=== PATIENT | female | born 2000 | race American Indian/Alaskan Native ===

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

== ENCOUNTER 2019-01-16 17:28 | Inpatient (IN) | payer MEDICAID ==
--- NOTE | 2019-01-16 17:48 | History and Physical Report ---
History of Present Illness Date of examination: 01/16/19 Date of admission: 01/16/19 17:28 History of present illness: Patient admitted from office for induction due to BPP of 01/28 ( 2 for NST and amniotic fluid volume) Patient w/o complaints states she has been feeling movement. Menstrual History Regularity: irregular Menses every: 30 days Duration: 5 LMP: 04/13/2018 LMP reliability: definite LMP character: normal test type: urine test Date: 04/23/2018 BC at conception: none Planned ? no EDC Calculations LMP: 01/18/2019 EDC Confirmation: 01/18/2019 Past History : 1 Living Children: 0 Past Medical History: Negative Past Medical History Past Surgical History: Negative Past Surgical History Past Medical History Surgery (Non-counselor aid): Negative Past Surgical History Abnormal PAP: negative GARRICK Exposure: negative Infertility: negative Uterine Anomaly: negative Uterine Surgery (not C/S): negative Other Gynecologic Problems: negative Medical History Comments: negaitve Family Hx: father-DM breast stomach CA-MGM Social Hx: single no e/t/d Infection History Varicella/Chicken Pox Status: Unknown Genetic History Congenital Heart Defect: Mom: no Dad: no Kandace Disease: Mom: no Dad: no Thalassemia Mom: no Dad: no Neural Tube Defect Mom: no Dad: no Down's Syndrome Mom: no Dad: no Donald-Sachs Mom: no Dad: no Sickle Cell Disease/Trait Mom: no Dad: no Hemophilia Mom: no Dad: no Muscular Dystrophy Mom: no Dad: no Cystic Fibrosis Mom: no Dad: no Major Chorea Mom: no Dad: no Mental Retardation Mom: no Dad: no Fragile X Mom: no Dad: no Other Genetic/Chromosomal Disorder Mom: no Dad: no Child w/other defect Mom: no Dad: no Enviromental Exposures Xray Exposure: no Medication, drug, or alcohol use since LMP: no Chemical/Other Exposure: no Exposure to Cat Liter: no Hx of Parvovirus (Fifth Disease): no Occupational Exposure to Children: none Current Allergies (reviewed today): No known allergies Past History Past Medical History: other (See HPI) Past Surgical History: other (See HPI) LOG CLERK History: other (See HPI) Family/Genetic History: other Social history: single, full code, other (See HPI) - Obstetrical History Expected Date of Delivery: 01/18/19 Actual Gestation: 39 Week(s) 6 Day(s) : 1 Para: 0 Hx # Term Pregnancies: 0 Number of Pregnancies: 0 Spontaneous Abortions: 0 Induced : 0 Number of Living Children: 0 Medications and Allergies Allergies Allergy/AdvReac Type Severity Reaction Status Date / Time No Known Allergies Allergy Verified 05/19/18 18:53 Home Medications Medication Instructions Recorded Confirmed Last Taken Type Nitrofurantoin [place]/M-Cryst 100 mg PO Q12HR #10 capsule 06/04/17 Unknown Rx [Macrobid CAP] Phenazopyridine [Pyridium] 100 mg PO TID #12 tab 06/04/17 Unknown Rx Naproxen [Naprosyn TAB] 500 mg PO BID PRN #12 tablet 07/29/17 Unknown Rx Diphenhydramine HCl/Zinc Acet 28.3 gm TP BID PRN #1 tube 08/19/17 Unknown Rx [Benadryl Itch Stopping Crm] hydrOXYzine HCl [Hydroxyzine HCl] 25 mg PO BID #14 tablet 08/19/17 Unknown Rx methylPREDNISolone [Medrol] 4 mg PO QAM #1 tab.ds.pk 08/19/17 Unknown Rx Ibuprofen [Motrin] 600 mg PO Q8H PRN #30 tablet 03/13/18 Unknown Rx Vit-Fe Fumar-FA [ 1 tab PO QDAY #30 tablet 05/20/18 Unknown Rx Vitamin] Doxylamine Succinate/Vit B6 1 each PO Q6H #30 tablet. 06/06/18 Unknown Rx [Marquez Cardona 10-10 mg Tablet] Deanna Root [Deanna] 250 mg PO Q6H #30 capsule 06/06/18 Unknown Rx Review of Systems All systems: negative - Physical Exam Breasts: Positive: deferred Cardiovascular: Regular rate Lungs: Positive: Normal air movement Abdomen: Positive: normal appearance Genitourinary (Female): Positive: normal external genitalia Uterus: Positive: enlarged Extremities: Positive: edema - Obstetrical Uterine Contraction Pattern: Absent Results Result Diagrams: 01/16/19 20:58 All other labs normal. Assessment and Plan - Patient Problems (1) with 39 completed weeks gestation Current Visit: Yes Status: Acute (2) Abnormal test Current Visit: Yes Status: Acute Plan to address problem: Admitted for serial induction. Cervidil is closed. Will place cervidil this pm Watch tracing. Pitoin in am. patient questions answered. patient has missed last appointments Will do drug screen due to low BPP.
[2019-01-16] MEDS ORDERED: STADOL IV PRN (17:51)
[2019-01-16] MEDS ORDERED: BRETHINE SUB-Q PRN (17:51)
[2019-01-16] MEDS ORDERED: CERVIDIL VG ONE (17:51)
[2019-01-16] MEDS ORDERED: PHENERGAN PO PRN (17:51)
[2019-01-16] MEDS ORDERED: XYLOCAINE 2% INFILTRATI ONE (17:51)
[2019-01-16] MEDS ORDERED: BRETHINE IVP PRN (17:51)
[2019-01-16] MEDS ORDERED: PITOCin/NS 20 UNIT/1000ML DRIP 20 UNITS/1,000 ML BAG IV SCH (18:00)
[2019-01-16 21:35] LABS: Hematocrit 25.5 % (30.3-42.9); Mean Corpuscular HGB Conc 32 % (30-34); Mean Corpuscular Volume 71 fl (79-97); Platelet Count 216 K/mm3 (140-440)
[2019-01-16 21:36] LABS: Red Cell Distribution Width 20.1 % (13.2-15.2)
[2019-01-16] MEDS: LACTATED RINGERS 1,000 ML IV SCH (21:37)
[2019-01-16 21:42] LABS: Amphetamine Screen,Urine PRESUMPTIVE NEGATIVE; Benzodiazepines Screen,Urine PRESUMPTIVE NEGATIVE; Cannabinoid Screen,Urine PRESUMPTIVE NEGATIVE; Cocaine Screen,Urine PRESUMPTIVE NEGATIVE; Methadone Screen,Urine PRESUMPTIVE NEGATIVE; Opiate Screen,Urine PRESUMPTIVE NEGATIVE
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
[2019-01-17] MEDS: PITOCin/NS 30 UNIT/500ML 30 UNITS/500 ML BAG IV SCH ×3 (10:29→12:24)
--- NOTE | 2019-01-17 11:08 | Event Note ---
Date: 01/17/19 elevated b/p noted, possibly related to pain. will get baseline pre-e labs and continue to monitor
--- NOTE | 2019-01-17 11:51 | Progress Note ---
Assessment and Plan Pt continues to have regular ctx, rates pain 04/29. SVE now 4/80/-1, head well applied to cervix. Discussed AROM and internal monitoring for accurate pitocin titration. Pt and mother agree. AROM - small amount of clear blood- tinged fluid noted. IUPC and ISE placed without difficulty. Pitocin currently infusing @ 4mU, rn to titrate for adequate labor. FHT remain CAT 1. Epidural PRN. - Patient Problems (1) Abnormal test Current Visit: Yes Status: Acute (2) Anemia affecting in third trimester Current Visit: Yes Status: Acute (3) with 39 completed weeks gestation Current Visit: Yes Status: Acute Subjective - Subjective Date of service: 01/17/19 Principal diagnosis: IUp @ 39+6 weeks, IOL for BPP 01/28 Patient reports: movement normal, contractions Objective - Vital Signs Vital Signs: Vital Signs - 12hr 01/16/19 01/17/19 01/17/19 23:53 00:53 05:53 Temperature Pulse Rate 75 62 62 Respiratory Rate Blood Pressure 123/74 109/61 141/78 Blood Pressure [Right] 01/17/19 01/17/19 01/17/19 09:17 10:53 11:09 Temperature 98.6 F Pulse Rate 67 67 70 Respiratory 16 Rate Blood Pressure 143/80 161/72 130/76 Blood Pressure 143/80 [Right] - Exam Breasts: normal Cardiovascular: Regular rate Lungs: Clear to auscultation, Normal air movement Abdomen: Present: normal appearance, soft Vulva: both: normal Uterus: Present: normal FHR: category 1 Uterine Contraction Monitor Mode: Internal Cervical Dilatation: 4 (AROM - ISE and IUPC placed) Cervical Effacement Percentage: 80 station: -1 Uterine Contraction Frequency (min): 2-3 Uterine Contraction Duration: 60 Uterine Contraction Pattern: Regular Uterine Tone Measurement Phase: Contraction Uterine Contraction Intensity: Mild Extremities: normal Deep Tendon Reflex Grade: Normal +2 - Labs Labs: Abnormal Labs 01/16/19 20:58 RBC 3.60 L Hgb 8.0 L Hct 25.5 L MCV 71 L MCH 22 L RDW 20.1 H Laboratory Results - last 24 hr 01/16/19 01/16/19 01/16/19 20:58 20:58 20:58 WBC 8.7 RBC 3.60 L Hgb 8.0 L Hct 25.5 L MCV 71 L MCH 22 L MCHC 32 RDW 20.1 H Plt Count 216 Urine Opiates Screen Presumptive negative Urine Methadone Screen Presumptive negative Ur Barbiturates Screen Presumptive negative Ur Phencyclidine Scrn Presumptive negative Ur Amphetamines Screen Presumptive negative U Benzodiazepines Scrn Presumptive negative Urine Cocaine Screen Presumptive negative U Marijuana (THC) Screen Presumptive negative Drugs of Abuse Note Disclamer Blood Type A POSITIVE Antibody Screen Negative
[2019-01-17] MEDS: LACTATED RINGERS 1,000 ML IV SCH ×2 (12:24→17:16)
[2019-01-17] MEDS ORDERED: MARCAINE 0.25% INFILTRATI ONE (13:11)
[2019-01-17] MEDS ORDERED: NARCAN 2 MG/2 ML IV PRN (13:52)
--- NOTE | 2019-01-17 13:52 | Anesthesia Consultation ---
Anesthesia Consult and Med Hx - Airway Anesthetic Teeth Evaluation: Good, Partials ROM Head & Neck: Adequate Mental/Hyoid Distance: Adequate Mallampati Class: Class II Intubation Access Assessment: Probably Good - Pulmonary Exam CTA: Yes - Cardiac Exam Cardiac Exam: RRR - Pre-Operative Health Status ASA Pre-Surgery Classification: ASA2 Proposed Anesthetic Plan: Epidural - Pulmonary Hx Asthma: No - Cardiovascular System Hx Hypertension: No - Central Nervous System Hx Neuromuscular Disorder: No Hx Seizures: No Hx Psychiatric Problems: No - Endocrine Hx Renal Disease: No Hx Hypothyroidism: No Hx Hyperthyroidism: No - Hematic Hx Anemia: No Hx Sickle Cell Disease: No - Other Systems Hx Alcohol Use: No
--- NOTE | 2019-01-17 13:52 | Anesthesia Day of Surgery ---
Anesthesia Day of Surgery - Day of Surgery Patient Examined: Yes Patient H&P Reviewed: Yes Patient is NPO: Yes Beta Blockers: No Cardiac Clearance: No Pulmonary Clearance: No Clay's Test: N/A
[2019-01-17] MEDS ORDERED: fentaNYL-BUPIV 2 MCG/ML-0.125% 200 MCG/100 ML BAG EPIDURAL SCH (14:00)
--- NOTE | 2019-01-17 14:02 | Progress Note ---
Assessment and Plan Patient comfortable with epidural, SVE 5/80/-1. FHT baseline down to 110 after epidural with good variability, + accels and no decelerations. Will continue to watch closely. Pitocin infusing @ 6mU, rn to increase for adequate ctx strength. Pelvis feels adequate for size. efw by Jackelin 8-9lbs. - Patient Problems (1) Abnormal test Current Visit: Yes Status: Acute (2) Anemia affecting in third trimester Current Visit: Yes Status: Acute (3) with 39 completed weeks gestation Current Visit: Yes Status: Acute Subjective - Subjective Date of service: 01/17/19 Principal diagnosis: IUp @ 39+6 weeks, IOL for BPP 01/28 Patient reports: no new complaints (comfortable s/p epidural) Objective - Vital Signs Vital Signs: Vital Signs - 12hr 01/17/19 01/17/19 01/17/19 05:53 09:17 10:53 Temperature 98.6 F Pulse Rate 62 67 67 Respiratory 16 Rate Blood Pressure 141/78 143/80 161/72 Blood Pressure 143/80 [Right] O2 Sat by Pulse Oximetry 01/17/19 01/17/19 01/17/19 11:09 12:53 13:26 Temperature Pulse Rate 70 66 74 Respiratory Rate Blood Pressure 130/76 134/92 158/81 Blood Pressure [Right] O2 Sat by Pulse Oximetry 01/17/19 01/17/19 01/17/19 13:33 13:50 13:52 Temperature Pulse Rate 85 86 94 H Respiratory Rate Blood Pressure 144/100 133/67 Blood Pressure [Right] O2 Sat by Pulse 100 Oximetry - Exam Breasts: normal Cardiovascular: Regular rate Lungs: Clear to auscultation, Normal air movement Abdomen: Present: normal appearance, soft Vulva: both: normal Uterus: Present: normal FHR: auscultation normal, category 1 Uterine Contraction Monitor Mode: Internal Cervical Dilatation: 5 Cervical Effacement Percentage: 80 station: -1 Uterine Contraction Frequency (min): 2-3 Uterine Contraction Duration: 50-70 Uterine Contraction Pattern: Regular Uterine Tone Measurement Phase: Contraction Uterine Contraction Intensity: Moderate Extremities: normal Deep Tendon Reflex Grade: Normal +2 - Labs Labs: Abnormal Labs 01/16/19 20:58 RBC 3.60 L Hgb 8.0 L Hct 25.5 L MCV 71 L MCH 22 L RDW 20.1 H Laboratory Results - last 24 hr 01/16/19 01/16/19 01/16/19 20:58 20:58 20:58 WBC 8.7 RBC 3.60 L Hgb 8.0 L Hct 25.5 L MCV 71 L MCH 22 L MCHC 32 RDW 20.1 H Plt Count 216 Urine Opiates Screen Presumptive negative Urine Methadone Screen Presumptive negative Ur Barbiturates Screen Presumptive negative Ur Phencyclidine Scrn Presumptive negative Ur Amphetamines Screen Presumptive negative U Benzodiazepines Scrn Presumptive negative Urine Cocaine Screen Presumptive negative U Marijuana (THC) Screen Presumptive negative Drugs of Abuse Note Disclamer Blood Type A POSITIVE Antibody Screen Negative
[2019-01-17 14:34] LABS: Bilirubin,Urine NEG (Negative); Blood,Urine NEG (Negative); Color,Urine Straw (Yellow); Protein,Urine <15 mg/dL mg/dL (Negative); Urobilinogen,Urine < 2.0 mg/dL (<2.0); WBC,Urine < 1.0 /HPF (0.0-6.0)
[2019-01-17 14:36] LABS: RBC,Urine < 1.0 /HPF (0.0-6.0)
[2019-01-17 15:09] LABS: Alanine Aminotransferase 9 units/L (7-56)
--- NOTE | 2019-01-17 16:59 | Progress Note ---
Assessment and Plan SVE now , patient c/o hip pain but does not seem to be related to ctx. RN to administer bolus via epidural pump. patient turned to LLP with right leg placed in stirrup. FHT baseline 115, + accels, + early decels, ave variability. Pitocin currently infusing @ 18mU. Continue current management and close observation. Anticipate . - Patient Problems (1) Abnormal test Current Visit: Yes Status: Acute (2) Anemia affecting in third trimester Current Visit: Yes Status: Acute (3) with 39 completed weeks gestation Current Visit: Yes Status: Acute Subjective - Subjective Date of service: 01/17/19 Principal diagnosis: IUp @ 39+6 weeks, IOL for BPP 01/28 Patient reports: no new complaints (comfortable s/p epidural) Objective - Vital Signs Vital Signs: Vital Signs - 12hr 01/17/19 01/17/19 01/17/19 05:53 09:17 10:53 Temperature 98.6 F Pulse Rate 62 67 67 Respiratory 16 Rate Blood Pressure 141/78 143/80 161/72 Blood Pressure 143/80 [Right] O2 Sat by Pulse Oximetry 01/17/19 01/17/19 01/17/19 11:09 12:53 13:26 Temperature Pulse Rate 70 66 74 Respiratory Rate Blood Pressure 130/76 134/92 158/81 Blood Pressure [Right] O2 Sat by Pulse Oximetry 01/17/19 01/17/19 01/17/19 13:33 13:50 13:52 Temperature Pulse Rate 85 86 94 H Respiratory Rate Blood Pressure 144/100 133/67 Blood Pressure [Right] O2 Sat by Pulse 100 Oximetry 01/17/19 01/17/19 01/17/19 13:57 14:02 14:07 Temperature Pulse Rate 75 71 89 Respiratory Rate Blood Pressure Blood Pressure [Right] O2 Sat by Pulse 99 99 99 Oximetry 01/17/19 01/17/19 01/17/19 14:12 14:17 14:18 Temperature Pulse Rate 68 66 70 Respiratory Rate Blood Pressure 137/77 Blood Pressure [Right] O2 Sat by Pulse 100 100 Oximetry 01/17/19 01/17/19 01/17/19 14:22 14:27 14:32 Temperature Pulse Rate 71 69 73 Respiratory Rate Blood Pressure Blood Pressure [Right] O2 Sat by Pulse 100 100 100 Oximetry 01/17/19 01/17/19 01/17/19 14:37 14:42 14:44 Temperature Pulse Rate 58 L 73 69 Respiratory Rate Blood Pressure 128/64 Blood Pressure [Right] O2 Sat by Pulse 100 98 Oximetry 01/17/19 01/17/19 01/17/19 14:47 14:52 14:53 Temperature Pulse Rate 62 62 61 Respiratory Rate Blood Pressure 134/68 Blood Pressure [Right] O2 Sat by Pulse 100 100 Oximetry 01/17/19 01/17/19 01/17/19 14:57 15:02 15:07 Temperature Pulse Rate 60 66 67 Respiratory Rate Blood Pressure Blood Pressure [Right] O2 Sat by Pulse 99 100 100 Oximetry 01/17/19 01/17/19 01/17/19 15:12 15:17 15:22 Temperature Pulse Rate 66 67 85 Respiratory Rate Blood Pressure Blood Pressure [Right] O2 Sat by Pulse 100 100 82 L Oximetry 01/17/19 01/17/19 01/17/19 15:27 15:32 15:37 Temperature Pulse Rate 75 65 66 Respiratory Rate Blood Pressure Blood Pressure [Right] O2 Sat by Pulse 97 99 100 Oximetry 01/17/19 01/17/19 01/17/19 15:38 15:42 16:30 Temperature Pulse Rate 70 64 69 Respiratory Rate Blood Pressure 154/65 Blood Pressure [Right] O2 Sat by Pulse 87 100 Oximetry 01/17/19 01/17/19 16:49 16:53 Temperature Pulse Rate 80 70 Respiratory Rate Blood Pressure 115/56 Blood Pressure [Right] O2 Sat by Pulse 100 Oximetry - Exam Breasts: normal Cardiovascular: Regular rate Lungs: Clear to auscultation, Normal air movement Abdomen: Present: normal appearance, soft Vulva: both: normal Uterus: Present: normal FHR: category 2 Uterine Contraction Monitor Mode: Internal Cervical Dilatation: 6.5 Cervical Effacement Percentage: 90 station: -1 Uterine Contraction Frequency (min): 2-3 Uterine Contraction Duration: 60 Uterine Contraction Pattern: Regular Uterine Tone Measurement Phase: Contraction Uterine Contraction Intensity: Moderate Extremities: normal Deep Tendon Reflex Grade: Normal +2 - Labs Labs: Abnormal Labs 01/16/19 01/17/19 01/17/19 20:58 14:22 14:28 RBC 3.60 L Hgb 8.0 L Hct 25.5 L MCV 71 L MCH 22 L RDW 20.1 H Creatinine 0.5 L Lactate Dehydrogenase 220 H Ur Specific [place] 1.002 L Laboratory Results - last 24 hr 01/16/19 01/16/19 01/16/19 20:58 20:58 20:58 WBC 8.7 RBC 3.60 L Hgb 8.0 L Hct 25.5 L MCV 71 L MCH 22 L MCHC 32 RDW 20.1 H Plt Count 216 Creatinine Estimated GFR Uric Acid AST ALT Lactate Dehydrogenase Urine Color Urine Turbidity Urine pH Ur Specific [place] Urine Protein Urine Glucose (UA) Urine Ketones Urine Blood Urine Nitrite Urine Bilirubin Urine Urobilinogen Ur Leukocyte Esterase Urine WBC (Auto) Urine RBC (Auto) U Epithel Cells (Auto) Urine Opiates Screen Presumptive negative Urine Methadone Screen Presumptive negative Ur Barbiturates Screen Presumptive negative Ur Phencyclidine Scrn Presumptive negative Ur Amphetamines Screen Presumptive negative U Benzodiazepines Scrn Presumptive negative Urine Cocaine Screen Presumptive negative U Marijuana (THC) Screen Presumptive negative [facility] Blood Type A POSITIVE Antibody Screen Negative 01/17/19 01/17/19 14:22 14:28 WBC RBC Hgb Hct MCV MCH MCHC RDW Plt Count Creatinine 0.5 L Estimated GFR > 60 Uric Acid 4.0 AST 15 ALT 9 Lactate Dehydrogenase 220 H Urine Color Straw Urine Turbidity Clear Urine pH 7.0 Ur Specific [place] 1.002 L Urine Protein <15 mg/dl Urine Glucose (UA) Neg Urine Ketones Neg Urine Blood Neg Urine Nitrite Neg Urine Bilirubin Neg Urine Urobilinogen < 2.0 Ur Leukocyte Esterase Neg Urine WBC (Auto) < 1.0 Urine RBC (Auto) < 1.0 U Epithel Cells (Auto) < 1.0 Urine Opiates Screen Urine Methadone Screen Ur Barbiturates Screen Ur Phencyclidine Scrn Ur Amphetamines Screen U Benzodiazepines Scrn Urine Cocaine Screen U Marijuana (THC) Screen Drugs of Abuse Note Blood Type Antibody Screen
[2019-01-17] MEDS ORDERED: CYTOTEC ONE (18:31)
[2019-01-17] MEDS ORDERED: CYTOTEC PR ONE (18:31)
--- NOTE | 2019-01-17 18:49 | Procedure Note ---
OB Delivery Note - Delivery Date of Delivery: 01/17/19 (female ) Assistant Administrator: LORI ULLOA Estimated blood loss: other (600) - Vaginal Delivery presentation: vertex Delivery position: OA Intrapartum events: shoulder dystocia (30 seconds, resolved with haley and suprapubic pressure), other(please specify) (induction for nonreassuring testing, BPP 4/10) Delivery induction: cervidil Delivery augmentation: pitocin Delivery monitor: internal FHT, internal uterine Route of delivery: Delivery placenta: spontaneous Delivery cord: 3 umbilical vessels Episiotomy: none Delivery laceration: 2nd degree Delivery repair: vicryl Anesthesia: epidural Delivery comments: female delivered KULDEEP, turtle signed noted immediately with delivery of the head. HOB layed flat, haley and superpubic pressure applied. Total time of dystocia approx 30 seconds. Infant placed skin to skin, 3 vessel cord clamped and cut. Placenta del intact and complete. Pit to IVF. Moderate bleeding noted after delivery of placenta resolved with fundal massage. 2nd degree laceration repaired in the usual fashion. second episode of moderate bleeding noted during repair, Cytotec 800mcg placed rectally. Bleeding resolved. EBL 600. Apgars 8/8. infant's weight 9#4oz. appears to be moving all extremities without limitations. Dr. Bedoya present during delivery. - A at 1 minute: 8 at 5 minutes: 8 Infant Gender: Female (9#4)
[2019-01-17] MEDS ORDERED: ZOFRAN IV PRN (21:43)
[2019-01-17] MEDS ORDERED: BENADRYL PO PRN (21:43)
[2019-01-17] MEDS ORDERED: PITOCin/NS 20 UNIT/1000ML DRIP 20 UNITS/1,000 ML BAG IV SCH (21:43)
[2019-01-17] MEDS ORDERED: MILK OF MAGNESIA PO PRN (21:43)
[2019-01-17] MEDS ORDERED: TUCKS PAD TP PRN (21:43)
[2019-01-17] MEDS ORDERED: PHENERGAN PO PRN (21:43)
[2019-01-17] MEDS ORDERED: LANSINOH TP PRN (21:43)
[2019-01-17] MEDS ORDERED: TYLENOL PO PRN (21:43)
[2019-01-17] MEDS ORDERED: DULCOLAX PR PRN (21:43)
[2019-01-17] MEDS ORDERED: DERMOPLAST TP PRN (21:43)
[2019-01-17] MEDS ORDERED: SODIUM CHLORIDE FLUSH SYRINGE 10 ML IV PRN (21:43)
[2019-01-17] MEDS: FEOSOL PO SCH (23:01)
[2019-01-17] MEDS: COLACE PO SCH (23:01)
[2019-01-17] MEDS: IBUPROFEN PO SCH (23:02)
[2019-01-18] MEDS: FEOSOL PO SCH ×3 (07:47→21:43)
[2019-01-18] MEDS: IBUPROFEN PO SCH ×2 (07:47→16:16)
[2019-01-18 09:52] LABS: Hematocrit 21.5 % (30.3-42.9); Hemoglobin 6.7 gm/dl (10.1-14.3)
[2019-01-18] MEDS: COLACE PO SCH ×2 (10:09→21:43)
[2019-01-18] MEDS: PRENATAL VITAMIN PO SCH (10:10)
[2019-01-18] MEDS ORDERED: INFED IM ONE (13:00)
--- NOTE | 2019-01-18 13:07 | Progress Note ---
Assessment and Plan patient resting w/o complaints. denies needs at this time. reports feeling well cared for by hospital staff; needs and preferences have been addressed. H&H 6.7/21.5 (exiting anemia - asymptomatic, with drop after vaginal delivery.) discussed blood transfusion verses iron - pt wishes to avoid blood transfusion. Infed ordered. VSSAF - b/p's range 130-140's/70-80's. pt denies GANT, visual changes or epigastric pain. pre-e labs collected yesterday afternoon normal. Lochia scant, perineum with mildly edematous, fundus firm. Continue current management plus Infed for anemia. plan on discharge tomorrow. pt agrees with plan of care. - Patient Problems (1) Anemia affecting in third trimester Current Visit: Yes Status: Acute (2) Vaginal delivery Current Visit: Yes Status: Acute (3) Gestational HTN Current Visit: Yes Status: Acute Qualifiers: Trimester: unspecified trimester Qualified Code(s): O13.9 - Gestational [-induced] hypertension without significant proteinuria, unspecified trimester Subjective - Subjective Date of service: 01/18/19 Principal diagnosis: day #1, borderline b/p, existing anemia Patient reports: appetite normal, voiding normally, pain well controlled, ambulating normally, no dizzy ambulation, no nauseated Devine: doing well (in nursery for testing ) Objective - Vital Signs Latest vital signs: Vital Signs Temp Pulse Resp BP Pulse Ox 01/18/19 08:15 98.8 F 65 20 138/74 100 01/18/19 04:32 98.9 F 60 20 143/70 99 01/17/19 23:55 99.0 F 82 20 136/73 98 01/17/19 20:34 99.4 F 78 20 138/87 98 01/17/19 19:41 88 155/72 01/17/19 19:11 107 H 158/62 01/17/19 18:56 113 H 101/56 01/17/19 18:41 111 H 109/61 01/17/19 17:24 101 H 100 01/17/19 17:19 86 100 01/17/19 17:17 78 92 01/17/19 17:14 81 99 01/17/19 17:09 75 100 01/17/19 17:04 71 100 01/17/19 16:59 75 100 01/17/19 16:54 76 100 01/17/19 16:53 70 115/56 01/17/19 16:49 80 100 01/17/19 16:30 69 154/65 01/17/19 15:42 64 100 01/17/19 15:38 70 87 01/17/19 15:37 66 100 01/17/19 15:32 65 99 01/17/19 15:27 75 97 01/17/19 15:22 85 82 L 01/17/19 15:17 67 100 01/17/19 15:12 66 100 01/17/19 15:07 67 100 01/17/19 15:02 66 100 01/17/19 14:57 60 99 01/17/19 14:53 61 134/68 01/17/19 14:52 62 100 01/17/19 14:47 62 100 01/17/19 14:44 69 128/64 01/17/19 14:42 73 98 01/17/19 14:37 58 L 100 01/17/19 14:32 73 100 01/17/19 14:27 69 100 01/17/19 14:22 71 100 01/17/19 14:18 70 137/77 01/17/19 14:17 66 100 01/17/19 14:12 68 100 01/17/19 14:07 89 99 01/17/19 14:02 71 99 01/17/19 13:57 75 99 01/17/19 13:52 94 H 100 01/17/19 13:50 86 133/67 01/17/19 13:33 85 144/100 01/17/19 13:26 74 158/81 Intake and Output 01/17/19 01/18/19 01/18/19 23:59 07:59 15:59 Intake Total 874.933 360 Output Total 250 900 Balance 874.933 110 -900 Intake: IV 634.933 Lactated Ringers 1,000 ml 608.333 @ 125 mls/hr IV DIRECT LIS Rx#:[id number] PITOCin/NS 30 UNIT/500ML 26.6 30 units In 500 ml @ 2 mls/hr IV TITR LIS Rx#: [id number] Oral 240 360 Output: Urine 250 900 Void 250 900 Other: Total, Intake Amount 240 120 Total, Output Amount 250 900 # Voids Void 1 Estimated Blood Loss 600 - Exam Breasts: Present: normal Cardiovascular: Present: Regular rate Lungs: Present: Clear to auscultation, Normal air movement Abdomen: Present: normal appearance, soft Vulva: both: laceration/episiotomy Uterus: Present: normal, firm, fundal height at umbilicus Extremities: Present: edema (1+ nonpitting) Deep Tendon Reflex Grade: Normal +2 - Labs Labs: Abnormal lab results 01/17/19 01/17/19 01/18/19 Range/Units 14:22 14:28 09:22 Hgb 6.7 L (10.1-14.3) gm/dl Hct 21.5 L (30.3-42.9) % Creatinine 0.5 L (0.7-1.2) mg/dL Lactate Dehydrogenase 220 H (91-180) units/L Ur Specific [place] 1.002 L (1.003-1.030)
[2019-01-19] MEDS: IBUPROFEN PO SCH ×2 (05:22→12:43)
[2019-01-19] MEDS ORDERED: BOOSTRIX IM ONE (06:00)
[2019-01-19 06:24] LABS: Hematocrit 21.4 % (30.3-42.9); Hemoglobin 6.5 gm/dl (10.1-14.3)
--- NOTE | 2019-01-19 08:21 | Progress Note ---
Assessment and Plan 18 y/o PPD2 s/p . Patient presented with preexisting anemia. repeat H&H this AM 6.5/21.4 post Infed administration yesterday, will continue PO iron. Patient reports feeling well, says she was slightly dizzy this morning when ambulating to bathroom, but unsure if she was just tired. VSSAF. Fundus firm, ML, U/2. Vaginal bleeding is scant. Patient reports is going well, no complaints. She reports pain is well controlled with Ibuprofen. She denies any PIH s/s, assessment WNL. DWP option for blood transfusion prior to discharge, patient declines at this time, requesting to eat breakfast and see how she feels after. Will consult with Dr. Muniz concerning DC today after reassessing patient status after breakfast. Subjective - Subjective Date of service: 01/19/19 Principal diagnosis: day #2, borderline b/p, existing anemia Patient reports: appetite normal, voiding normally, pain well controlled, ambulating normally : doing well Objective - Vital Signs Latest vital signs: Vital Signs Temp Pulse Resp BP Pulse Ox 01/19/19 06:22 18 01/19/19 05:22 20 01/19/19 00:17 98.4 F 68 20 129/76 98 01/18/19 17:45 76 138/79 99 01/18/19 16:33 98.3 F 69 20 152/82 99 01/18/19 12:36 98.8 F 73 20 144/77 98 Intake and Output 01/18/19 01/19/19 01/19/19 23:59 07:59 15:59 Intake Total 240 Balance 240 Intake: Oral 240 Other: Total, Intake Amount 240 - Exam Breasts: Present: normal Cardiovascular: Present: Regular rate, Normal S1, Normal S2 Lungs: Present: Clear to auscultation Abdomen: Present: normal appearance, soft Vulva: both: normal Uterus: Present: normal, firm Extremities: Present: normal Deep Tendon Reflex Grade: Normal +2 - Labs Labs: Abnormal lab results 01/18/19 01/19/19 Range/Units 09:22 06:05 Hgb 6.7 L 6.5 L (10.1-14.3) gm/dl Hct 21.5 L 21.4 L (30.3-42.9) %
[2019-01-19] MEDS: FEOSOL PO SCH (08:42)
[2019-01-19] MEDS: PRENATAL VITAMIN PO SCH (10:28)
[2019-01-19] MEDS: COLACE PO SCH (10:28)
--- NOTE | 2019-01-19 13:23 | Discharge Summary ---
Providers - Providers Date of Admission: 01/16/19 17:28 Date of discharge: 01/19/19 Attending physician: ELICEO BURTON Primary care physician: ELICEO BURTON Hospitalization Reason for admission: IOL Condition: Good Pertinent studies: post delivery H&H 6.7/21.5, pre existing anemia. Patient is asymptomatic Procedures: Hospital course: uncomplicated and course Disposition: DC-01 TO HOME OR SELFCARE Core Measure Documentation - Palliative Care Palliative Care/ Comfort Measures: Not Applicable - Core Measures Any of the following diagnoses?: none Exam - Constitutional Vitals: Temp Pulse Resp BP Pulse Ox 98.6 F 70 20 140/77 99 01/19/19 08:48 01/19/19 08:48 01/19/19 08:48 01/19/19 08:48 01/19/19 08:48 General appearance: Present: no acute distress, well-nourished - EENT Eyes: Present: PERRL ENT: hearing intact, clear oral mucosa - Neck Neck: Present: supple, normal ROM - Respiratory Respiratory effort: normal Respiratory: bilateral: CTA - Cardiovascular Rhythm: regular Heart Sounds: Present: S1 & S2. Absent: rub, click - Extremities Extremities: pulses symmetrical, No edema Peripheral Pulses: within normal limits - Abdominal General gastrointestinal: Present: soft, non-tender, non-distended, normal bowel sounds Female genitourinary: Present: normal - Integumentary Integumentary: Present: clear, warm, dry - Musculoskeletal Musculoskeletal: gait normal, strength equal bilaterally - Psychiatric Psychiatric: appropriate mood/affect, intact judgment & insight - Neurologic Neurologic: CNII-XII intact, moves all extremities - Additional findings Additional findings: Fundus firm, ML/U/2, bleeding scant. Patient reports feeling better. Denies feeling dizzy or faint with position changes or ambulation. Patient declines blood transfusion. Will DC home today. Patient to f/u in office in 1 week for BP check. Rx for iron printed and on chart for discharge. Patient agrees to take as directed. Patient will call office with any questions or concerns. Plan Activity: no restrictions Diet: regular Wound: open to air, keep clean and dry Follow up with: ELICEO BURTON MD [Primary Care Provider] - 7 Days (Congratulations! Please call [phone] to schedule a BP check in 1 week. Call office with any questions or concerns. )
[2019-01-19 14:45] VITALS: BP 141/87
== END 2019-01-19 16:08 | disposition home or self-care (01) | DRG 775 ==
LOC: LD 17:28 → OB 01-17 20:01
PROVIDERS: ADMIT Obstetrics & Gynecology; ATTEND Obstetrics & Gynecology
PROC: 10E0XZZ Delivery of Products of Conception, External Approach (ICD-10-PCS; principal; 2019-01-17)
PROC: 0KQM0ZZ Repair Perineum Muscle, Open Approach (ICD-10-PCS; 2019-01-17)
PROC: 10907ZC Drainage of Amniotic Fluid, Therapeutic from Products of Conception, Via Natural or Artificial Opening (ICD-10-PCS; 2019-01-17)
PROC: 10H07YZ Insertion of Other Device into Products of Conception, Via Natural or Artificial Opening (ICD-10-PCS; 2019-01-17)
PROC: 3E0R3BZ Introduction of Anesthetic Agent into Spinal Canal, Percutaneous Approach (ICD-10-PCS; 2019-01-17)
PROC: 00HU33Z Insertion of Infusion Device into Spinal Canal, Percutaneous Approach (ICD-10-PCS; 2019-01-17)
PROC: 3E0P7VZ Introduction of Hormone into Female Reproductive, Via Natural or Artificial Opening (ICD-10-PCS; 2019-01-17)
DX: O76 Abnormality in fetal heart rate and rhythm complicating labor and delivery (principal); O99.02 Anemia complicating childbirth; D64.9 Anemia, unspecified; O66.0 Obstructed labor due to shoulder dystocia; O70.1 Second degree perineal laceration during delivery; Z83.3 Family history of diabetes mellitus; Z80.3 Family history of malignant neoplasm of breast; Z3A.39 39 weeks gestation of pregnancy; Z37.0 Single live birth
CPT/HCPCS: 36415; 59200; 80307; 81001; 82565; 83615; 84450; 84460; 84550; 85014; 85018; 85027; 86850; 86900; 86901; G0378; J0595; J1750; J2590; J7120